=== PATIENT | male | born 1975 | race Caucasian/White ===

== ENCOUNTER 2019-07-03 15:52 | Emergency (ER) | payer BC ==
--- NOTE | 2019-07-03 17:34 | ED Physician Documentation ---
PD HPI ABD PAIN - Stated complaint Stated Complaint: N/V/D - Chief complaint Chief Complaint: Abd Pain - History obtained from History obtained from: Patient - History of Present Illness Timing - onset: Today (He came acutely ill this morning at 7 AM with vomiting and diarrhea. The diarrhea preceded the vomiting. He thinks it may be due to bad chicken he ate 2 nights ago. He has had chills as well. is sick with a similar illness.) Review of Systems Constitutional: reports: Chills, Fatigue Throat: reports: Sore throat ("from vomiting") Cardiac: denies: Chest pain / pressure, Palpitations GI: reports: Abdominal Pain, Nausea, Vomiting, Diarrhea. denies: Bloody / black stool : denies: Dysuria, Hesitancy PD PAST MEDICAL HISTORY - Present Medications Home Medications: Ambulatory Orders Medication Instructions Recorded Confirmed Ondansetron Odt [Zofran] 4 mg TL Q6H PRN #10 tablet 07/03/19 - Allergies Allergies/Adverse Reactions: Allergies Allergy/AdvReac Type Severity Reaction Status Date / Time prednisone Allergy Unknown Verified 07/03/19 15:58 PD ED PE NORMAL - Vitals Vital signs reviewed: Yes - General General: Alert and oriented X 3, No acute distress - HEENT HEENT: PERRL, EOMI - Neck Neck: Supple, no meningeal sign, No bony TTP - Cardiac Cardiac: RRR, No murmur - Respiratory Respiratory: No respiratory distress, Clear bilaterally - Abdomen Abdomen: Soft, Non tender - Neuro Neuro: Alert and oriented X 3, Normal speech Results - Vitals Vitals: Vital Signs - 24 hr 07/03/19 15:58 Temperature 36.5 C Heart Rate 64 Respiratory 17 Rate Blood Pressure 142/93 H O2 Saturation 99 Oxygen O2 Source Room air - Labs Labs: Laboratory Tests 07/03/19 17:40 Sodium 139 Potassium 3.9 Chloride 107 Carbon Dioxide 23 Anion Gap 9.0 BUN 21 H Creatinine 1.0 Estimated GFR (MDRD) 80 L Glucose 118 H Calcium 8.9 Total Bilirubin 0.7 AST 17 ALT 24 Alkaline Phosphatase 54 Total Protein 7.3 Albumin 4.3 Globulin 3.0 Albumin/Globulin Ratio 1.4 Lipase 31 PD MEDICAL DECISION MAKING - ED course ED course: 44-year-old gentleman with what sounds like gastroenteritis, and acute illness with vomiting and diarrhea. He was administered IV fluids, Zofran and Reglan with good results. Passed a p.o. challenge. He did supply stool for stool culture. This is pending on discharge. After the above interventions he was feeling well, remained nontender to palpation on abdominal exam just prior to discharge but given appendicitis precautions out of an abundance of caution. Departure - Departure Disposition: Home, Self Care Clinical Impression: Gastroenteritis Condition: Good Record reviewed to determine appropriate education?: Yes Instructions: ED Gastroenteritis Viral Prescriptions: Ondansetron Odt [Zofran] 4 mg TL Q6H PRN #10 tablet PRN Reason: Nausea / Vomiting Comments: If stool culture is positive we will call you, return for new or worsening symptoms or if not better in the next 12 to 24 hours.
[2019-07-03] MEDS ORDERED: SODIUM CHLORIDE 0.9% 1,000 ML IV ONE (17:42)
[2019-07-03] MEDS ORDERED: ONDANSETRON 4 MG/2 ML VIAL IVP STA (17:42)
[2019-07-03] MEDS ORDERED: LACTATED RINGERS 1,000 ML IV STA (17:43)
[2019-07-03 17:59] LABS: ALBUMIN 4.3 g/dL (3.2-5.5); ALBUMIN/GLOBULIN RATIO 1.4 (1.0-2.2); BILIRUBIN,TOTAL 0.7 mg/dL (0.2-1.0); CALCIUM 8.9 mg/dL (8.5-10.3); TOTAL PROTEIN 7.3 g/dL (6.7-8.2)
[2019-07-03] MEDS ORDERED: METOCLOPRAMIDE 10 MG/2 ML VIAL IVP STA (19:17)
[2019-07-03] MEDS ORDERED: DIPHENOX/ATROPINE 2.5/0.025 MG TABLET PO STA (19:17)
[2019-07-03] MEDS ORDERED: ONDANSETRON ODT 4 MG Prepack 2 TL STA (19:56)
[2019-07-03 20:12] VITALS: BP 121/84
== END 2019-07-03 20:19 | disposition home or self-care (01) ==
LOC: ED 15:52
DX: K52.9 Noninfective gastroenteritis and colitis, unspecified (principal)
CPT/HCPCS: 36415; 80053; 83690; 87045; 87046; 96361; 96374; 96375; 99283; A9270; J2765; J7120